=== PATIENT | male | born 1980 | race Caucasian/White ===

== ENCOUNTER 2022-10-05 19:02 | Emergency (ER) | payer SELFPAY ==
[2022-10-05 22:07] LABS: Absolute Lymphocytes (CBC) 1.7 K/uL (0.7-4.9); Hematocrit 51.2 % (39.6-49.0); Lymphocytes % 25.1 % (15.3-44.8); MCV 90.5 fL (80-100); MPV 7.9 fL (7.6-11.3); RBC Red Blood Cell Count 5.66 M/uL (4.33-5.43)
--- NOTE | 2022-10-05 22:21 | RAD REPORT ---
EXAM DESCRIPTION: Osman Single View10/05/2022 10:13 pm CLINICAL HISTORY: edema. Lower leg and feet swelling than redness. COMPARISON: No comparisons TECHNIQUE: PA and lateral views of the chest. FINDINGS: The lungs are clear. Mild central interstitial prominence, could reflect mild central avis estion. No pneumothorax or effusion. The cardiomediastinal contours are unremarkable. IMPRESSION: No focal airspace opacity. Suggestion of mild central congestion.
--- NOTE | 2022-10-05 22:22 | RAD REPORT ---
EXAM DESCRIPTION: RAD - Foot Left 3 View - 10/05/2022 10:13 pm CLINICAL HISTORY: Middle toe pain TECHNIQUE: Two views of the left foot COMPARISON: None. FINDINGS: No fracture, dislocation or periosteal reaction. Corticated osseous densities adjacent to the head of the fifth digit proximal phalanx, could reflect sequelae of remote trauma. No air or foreign body in the soft tissues. IMPRESSION: No acute osseous abnormality of the left foot.
[2022-10-05 22:31] LABS: Magnesium 2.4 mg/dL (1.6-2.4); Potassium 4.1 mmol/L (3.5-5.1); Troponin High Sensitivity 5.4 pg/mL (<58.9)
--- NOTE | 2022-10-05 22:35 | RAD REPORT ---
EXAM DESCRIPTION: US - Extrem Venous W Compress Jose - 10/05/2022 10:26 pm CLINICAL HISTORY: Pain COMPARISON: None. TECHNIQUE: Real-time sonographic evaluation of the bilateral lower extremity deep venous systems was performed. FINDINGS: Normal compressibility, flow augmentation, phasic flow and spontaneous flow is identified in both the left and right lower extremity deep venous systems. No intraluminal filling defects seen. Bilateral subcutaneous edema along the lower leg, more pronounced on the right. IMPRESSION: No evidence of deep venous thrombosis in either lower extremity.
--- NOTE | 2022-10-05 22:41 | RAD REPORT ---
EXAM DESCRIPTION: US - Lower Extremity Arterial Bilat - 10/05/2022 10:26 pm CLINICAL HISTORY: Pain COMPARISON: No comparisons TECHNIQUE: Bilateral lower extremity arterial Doppler examination was performed with waveform tracin g and color duplex imaging. FINDINGS: Triphasic waveforms are seen throughout both lower extremity arterial systems to the level of the socorro salis pedis artery on the right and posterior tibial arteries on the left. Monophasic flow seen within the dorsalis pedis artery on the left with preserved systolic upstroke. To the extent evaluated common no significant atherosclerotic plaque burden. IMPRESSION: No evidence of significant peripheral vascular disease on the right. Monophasic waveform pattern seen along the left dorsalis pedis artery, which raises concern for mild proximal stenosis. More proximally, the left lower extremity measures air structures show no signific ant peripheral vascular disease.
--- NOTE | 2022-10-06 00:49 | EDPHYS ---
Physician Documentation [facility] Name: Isaiah Monterroso Age: 41 yrs Sex: Male : 1980 Arrival Date: 10/05/2022 Time: 19:04 Bed 16 Private MD: ED Physician Paresh Marcano HPI: 10/05 21:13 This 41 yrs old Male presents to ER via Ambulatory with complaints of Leg Swelling, cp Wound Check. 21:13 The patient presents with swelling. cp 21:13 The complaints affect the left lower leg and right lower leg. Onset: The cp symptoms/episode began/occurred gradually. Associated signs and symptoms: Pertinent positives: left middle toe pain, Pertinent negatives fever, warmth. Treatment prior to arrival includes: no previous treatment. Severity of symptoms: in the emergency department the symptoms are unchanged, despite home interventions. Historical: - Allergies: 20:03 Sulfa (Sulfonamide Antibiotics); jh5 - PSHx: 20:03 Appendectomy; Cholecystectomy; right middle finger amputation; Tonsillectomy; 5 - Immunization history:: Adult Immunizations up to date. - Social history:: Smoking status: Patient reports the use of cigarette tobacco products, smokes one-half pack cigarettes per day. ROS: 21:15 Constitutional: Negative for body aches, chills, fever, poor PO intake. cp 21:15 Eyes: Negative for injury, pain, redness, and discharge. cp 21:15 Cardiovascular: Positive for edema, Negative for chest pain, palpitations. cp 21:15 Respiratory: Negative for cough, shortness of breath, wheezing. 21:15 Abdomen/GI: Negative for abdominal pain, nausea, vomiting, and diarrhea. 21:15 MS/extremity: Positive for pain, of the left middle toe, Negative for injury or acute deformity. 21:15 All other systems are negative. Exam: 21:20 Constitutional: The patient appears in no acute distress, alert, awake, cp non-diaphoretic, non-toxic, well developed, well nourished, obese. 21:20 Head/Face: Normocephalic, atraumatic. cp 21:20 Eyes: Periorbital structures: appear normal, Conjunctiva: normal, no exudate, no injection, Sclera: no appreciated abnormality, Lids and lashes: appear normal, bilaterally. 21:20 ENT: External ear(s): are unremarkable, Nose: is normal, Mouth: Lips: moist, Oral mucosa: moist, Posterior pharynx: Airway: no evidence of obstruction, patent. 21:20 Chest/axilla: Inspection: normal. 21:20 Cardiovascular: Rate: tachycardic, Rhythm: regular, Pulses: Pulses are 2+ in right dorsalis pedis artery and left dorsalis pedis artery. Edema: pedal edema, that is mild, ankle edema, that is moderate, JVD: is not appreciated. 21:20 Respiratory: the patient does not display signs of respiratory distress, Respirations: normal, no use of accessory muscles, no retractions, labored breathing, is not present, Breath sounds: are clear throughout, no decreased breath sounds, no stridor, no wheezing. 21:20 Abdomen/GI: Inspection: abdomen appears normal, Palpation: abdomen is soft and non-tender, in all quadrants. 21:20 Musculoskeletal/extremity: Extremities: noted in the left foot: middle toe painful to touch, mild swelling and erythema, web space between second and middle toe appears with erythema, macerated. 21:20 Neuro: Orientation: to person, place \T\ time. Mentation: is normal. 21:40 ECG was reviewed by the Attending Physician. cp Vital Signs: 20:00 BP 146 / 97; Pulse 105; Resp 18; Temp 98.6; Pulse Ox 100% ; Weight 86.18 kg; Height 5 5 ft. 11 in. (180.34 cm); Pain 9/10; 10/06 00:39 BP 136 / 96; Pulse 94; Resp 16; Pulse Ox 96% on R/A; jb4 10/05 20:00 Body Mass Index 26.50 (86.18 kg, 180.34 cm) 5 MDM: 10/05 20:57 Patient medically screened. [facility] 10/06 00:49 Data reviewed: vital signs, nurses notes, lab test result(s), EKG, radiologic studies, cp plain films, ultrasound. 00:49 Differential diagnosis: cellulitis, DVT, CHF. Consideration of Admission/Observation cp Escalation of care including admission/observation considered. Counseling: I had a detailed discussion with the patient and/or guardian regarding: the historical points, exam findings, and any diagnostic results supporting the discharge/admit diagnosis, lab results, radiology results, the need for outpatient follow up, a family practitioner, to return to the emergency department if symptoms worsen or persist or if there are any questions or concerns that arise at home. 10/05 21:13 Order name: Basic Metabolic Panel cp 10/05 21:13 Order name: CBC with Diff cp 10/05 21:13 Order name: Magnesium cp 10/05 21:13 Order name: NT PRO-BNP cp 10/05 21:13 Order name: PT-INR cp 10/05 21:13 Order name: Troponin HS cp 10/05 21:13 Order name: XRAY Foot LEFT 3 View cp 10/05 21:13 Order name: US Extremity Venous W Compression Jose cp 10/05 22:12 Order name: CBC with Automated Diff; Complete Time: 22:52 EDMS 10/05 22:52 Interpretation: Normal except: RBC 5.66; HCT 51.2. cp 10/05 22:31 Order name: Basic Metabolic Panel; Complete Time: 22:52 EDMS 10/05 22:52 Interpretation: Normal except: NA 134; GLUC 107; GFR 81. cp 10/05 22:31 Order name: Troponin High Sensitivity; Complete Time: 22:52 EDMS 10/05 22:31 Order name: NT PRO-BNP; Complete Time: 22:52 EDMS 10/05 22:31 Order name: Magnesium; Complete Time: 22:52 EDMS 10/05 22:54 Order name: Protime (+INR); Complete Time: 00:41 EDMS 10/05 21:13 Order name: XRAY Chest (1 view) cp 10/05 21:13 Order name: EKG; Complete Time: 21:14 cp 10/05 21:13 Order name: Cardiac monitoring; Complete Time: 22:01 cp 10/05 21:13 Order name: EKG - Nurse/Tech; Complete Time: 21:35 cp 10/05 21:13 Order name: IV Saline Lock; Complete Time: 22:01 cp 10/05 21:13 Order name: Labs collected and sent; Complete Time: 22:01 cp 10/05 21:13 Order name: O2 Per Protocol; Complete Time: 22:01 cp 10/05 21:13 Order name: O2 Sat Monitoring; Complete Time: 22:01 cp 10/05 21:13 Order name: US LE Arterial Bilateral cp 10/05 22:21 Order name: RAD; Complete Time: 22:52 EDMS 10/05 22:23 Order name: RAD; Complete Time: 22:52 EDMS 10/05 22:36 Order name: US; Complete Time: 22:52 EDMS 10/05 22:42 Order name: US; Complete Time: 22:52 EDMS 10/05 22:57 Order name: CT Aorta for Dissection cp EC/13 21:40 Rate is 88 beats/min. Rhythm is regular. ME interval is normal. QRS interval is cp prolonged at 104 msec. QT interval is normal. T waves are Inverted in lead aVR. Interpreted by me. Reviewed by me. Administered Medications: 10/06 01:04 Drug: Hydrocodone-Acetaminophen (7.5 mg-325 mg) 1 tabs Route: PO; jb4 01:04 Drug: Doxycycline 200 mg Route: PO; jb4 Disposition Summary: 10/06/22 00:49 Discharge Ordered Location: Home cp Problem: new cp Symptoms: have improved cp Condition: Stable cp Diagnosis - Cellulitis of left toe - middle cp - Edema, unspecified cp Followup: cp - With: Private Physician - When: 2 - 3 days - Reason: Recheck today's complaints Discharge Instructions: - Discharge Summary Sheet cp - Edema cp - Steps to Quit Smoking cp - How to Use Compression Stockings cp - Aspirin and Your Heart cp Forms: - Medication Reconciliation Form cp - Thank You Letter cp - Antibiotic Education cp - Prescription Opioid Use cp Prescriptions: - Lasix 20 mg Oral Tablet - take 1 tablet by ORAL route once daily for 5 days; 5 tablet; Refills: 0, cp Product Selection Permitted - Doxycycline Hyclate 100 mg Oral Tablet - take 1 tablet by ORAL route once daily for 10 days; 20 tablet; Refills: 0, cp Product Selection Permitted Signatures: Dispatcher [employer] EDOH Paresh Marcano MD MD cha Page, Corey, PA PA cp Bryson, James, RN RN jb4 Tiara Win RN RN jh5 Corrections: (The following items were deleted from the chart) 10/05 20:04 20:03 Allergies: Latex, Natural Rubber; [place] [id number]
--- NOTE | 2022-10-06 00:49 | ER ---
Nurse's Notes [facility] Name: Isaiah Monterroso Age: 41 yrs Sex: Male : 1980 Arrival Date: 10/05/2022 Time: 19:04 Bed 16 Private MD: Diagnosis: Cellulitis of left toe-middle;Edema, unspecified Presentation: 10/05 20:00 Chief complaint: Patient states: my shins and ankles and feet are way swollen and red jh5 x10 days; i dont like doctors, i dont see no doctor, i dont take no medicine. Coronavirus screen: Vaccine status: Patient reports being unvaccinated. Client denies travel out of the [place] in the last 14 days. Ebola Screen: Patient negative for fever greater than or equal to 101.5 degrees Fahrenheit, and additional compatible Ebola Virus Disease symptoms Patient denies exposure to infectious person. Patient denies travel to an Ebola-affected area in the 21 days before illness onset. Initial Sepsis Screen: Does the patient meet any 2 criteria? No. Patient's initial sepsis screen is negative. Does the patient have a suspected source of infection? No. Patient's initial sepsis screen is negative. Risk Assessment: Do you want to hurt yourself or someone else? Patient reports no desire to harm self or others. 20:00 Method Of Arrival: Ambulatory [facility] 20:00 Acuity: ANDREAS 2 5 Triage Assessment: 20:03 General: Appears uncomfortable, well groomed, well developed, Behavior is calm, jh5 cooperative, appropriate for age. Pain: Complains of pain in right foot and left foot. Historical: - Allergies: 20:03 Sulfa (Sulfonamide Antibiotics); jh5 - PSHx: 20:03 Appendectomy; Cholecystectomy; right middle finger amputation; Tonsillectomy; [facility] - Immunization history:: Adult Immunizations up to date. - Social history:: Smoking status: Patient reports the use of cigarette tobacco products, smokes one-half pack cigarettes per day. Screenin:15 [facility] ED Fall Risk Assessment (Adult) History of falling in the last 3 months, jb4 including since admission No falls in past 3 months (0 pts) Confusion or Disorientation No (0 pts) Score/Fall Risk Level 0 - 2 = Low Risk Oriented to surroundings, Maintained a safe environment. Abuse screen: Denies threats or abuse. Nutritional screening: No deficits noted. Tuberculosis screening: No symptoms or risk factors identified. Assessment: 21:15 General: Appears in no apparent distress. uncomfortable, Behavior is calm, cooperative, jb4 appropriate for age. Pain: Complains of pain in left foot Pain does not radiate. Pain currently is 8 out of 10 on a pain scale. Neuro: Level of Consciousness is awake, alert, obeys commands, Oriented to person, place, time, situation. Cardiovascular: Patient's skin is warm and dry. Respiratory: Airway is patent Respiratory effort is even, unlabored, Respiratory pattern is regular, symmetrical. GI: No signs and/or symptoms were reported involving the gastrointestinal system. : No signs and/or symptoms were reported regarding the genitourinary system. EENT: No signs and/or symptoms were reported regarding the EENT system. Derm: Skin is intact, Skin is pink, warm \T\ dry. Musculoskeletal: Circulation, motion, and sensation intact. Range of motion: intact in all extremities, Swelling present in right leg and left leg. 22:30 Reassessment: Patient appears in no apparent distress at this time. Patient and/or jb4 family updated on plan of care and expected duration. Pain level reassessed. Patient is alert, oriented x 3, equal unlabored respirations, skin warm/dry/pink. 23:30 Reassessment: Patient appears in no apparent distress at this time. Patient and/or jb4 family updated on plan of care and expected duration. Pain level reassessed. Patient is alert, oriented x 3, equal unlabored respirations, skin warm/dry/pink. 10/06 00:39 Reassessment: Patient appears in no apparent distress at this time. Patient and/or jb4 family updated on plan of care and expected duration. Pain level reassessed. Patient is alert, oriented x 3, equal unlabored respirations, skin warm/dry/pink. Provider at the bedside. Vital Signs: 10/05 20:00 BP 146 / 97; Pulse 105; Resp 18; Temp 98.6; Pulse Ox 100% ; Weight 86.18 kg; Height 5 jh5 ft. 11 in. (180.34 cm); Pain 9/10; 10/06 00:39 BP 136 / 96; Pulse 94; Resp 16; Pulse Ox 96% on R/A; jb4 02/13 20:00 Body Mass Index 26.50 (86.18 kg, 180.34 cm) [facility] ED Course: 10/05 19:04 Patient arrived in ED. as 20:03 Triage completed. 5 20:03 Arm band placed on left wrist. 5 20:19 Paresh Aldrich PA is PHCP. cp 20:19 Paresh Marcano MD is Attending Physician. cp 21:15 Patient has correct armband on for positive identification. Bed in low position. Call jb light in reach. Side rails up X 1. Client placed on continuous cardiac and pulse oximetry monitoring. NIBP monitoring applied. 22:01 Troponin HS Sent. jb4 22:01 PT-INR Sent. jb4 22:01 Magnesium Sent. jb4 22: NT PRO-BNP Sent. jb4 22: CBC with Diff Sent. jb4 22:01 Basic Metabolic Panel Sent. jb4 10/06 00:35 Ildefonso Ge, RN is Primary Nurse. 4 01:16 No provider procedures requiring assistance completed. IV discontinued, intact, jb4 bleeding controlled, No redness/swelling at site. Pressure dressing applied. Administered Medications: 01:04 Drug: Hydrocodone-Acetaminophen (7.5 mg-325 mg) 1 tabs Route: PO; jb4 01:04 Drug: Doxycycline 200 mg Route: PO; jb4 Outcome: 00:49 Discharge ordered by MD. cp 01:16 Discharged to home ambulatory, with family. jb4 01:16 Condition: stable 01:16 Discharge instructions given to patient, Instructed on discharge instructions, follow up and referral plans. medication usage, Demonstrated understanding of instructions, follow-up care, medications, Prescriptions given X 2. 01:17 Patient left the ED. 4 Signatures: Wendy Aparicio as Paresh Aldrich PA PA cp Ildefonso Ge, RN RN [facility] Tiara Win, ROSEMARIE RN [facility] Corrections: (The following items were deleted from the chart) 10/05 20:04 20:03 Allergies: Latex, Natural Rubber; [place] [id number]
[2022-10-06] MEDS ORDERED: HYDROCODONE/APAP 7.5/325 MG TAB ONE (01:02)
[2022-10-06] MEDS ORDERED: DOXYCYCLINE 100 MG CAP PO ONE (01:02)
[2022-10-06 01:22] VITALS: TEMP 98.6
[2022-10-06 01:23] VITALS: BP 136/96; O2SAT 96
--- NOTE | 2022-10-06 17:10 | EKG ---
Test Date: 2022-10-05 Test Time: 21:33:07 Welfare Analyst: RV MEASUREMENT RESULTS: Intervals: Rate: 88 KS: 164 QRSD: 104 QT: 346 QTc: 418 [place]: P: 51 KS: 164 QRS: 65 T: 49 INTERPRETIVE STATEMENTS: Normal sinus rhythm Normal ECG No previous ECG available for comparison Electronically Signed On 10-06-22 17:08:37 DESTINATION IMAGINATION COORDINATOR by Ras Arreguin
--- NOTE | 2022-10-06 20:10 | RAD REPORT ---
EXAM DESCRIPTION: CT - Angio Aorta For Dissection - 10/06/2022 6:45 am CLINICAL HISTORY: 41 years, Male, edema COMPARISON: None. TECHNIQUE: Multiple transaxial tomograms of the thoracic and abdominal aorta from the lung apex to t he ischial tuberosities performed utilizing 3 mm slice thickness at 3 mm interval obstruction after t he administration of large bowel IV contrast for complete opacification of the thoracic, abdominal ao rta and iliac arteries. 2-D and 3-D multiplanar reformats, volume rendering technique and maximum intensity projection images were generated and reviewed. This exam was performed according to our departmental dose-optimization protocol, which includes auto mated exposure control, adjustment of the mA and/or kV according to patient size and/or use of iterat [place] reconstruction technique. FINDINGS: Thoracic aorta: The thoracic aorta demonstrate to be within normal limits. There is no evidence for significant aneur ysm/or dissection. The heart is normal transient pattern of the great vessels. Incidentally is noted presence of origin of the left vertebral artery from the aortic arch. Abdominal aorta: The abdominal aorta demonstrate to be within normal limits. There is no evidence for significant diss ection and/or aneurysm. There is normal appearance of the celiac trunk, superior mesenteric and infer ior mesenteric artery with no evidence for significant stenosis/or occlusion. There are single bilateral renal arteries. Iliac arteries demonstrate to be normal with no evidence f or stenosis/or occlusion. Chest: The lung parenchyma demonstrate tiny centrilobular emphysematous changes at the lung apexes. No signi ficant pulmonary nodules and/or masses are identified. The trachea mainstem bronchus demonstrate to be unremarkable. There is no pleural/or pericardial effu sions. The heart is normal in size. The central pulmonary arteries demonstrate no evidence for significant f illing defects that would suggest pulmonary embolus. There is no significant mediastinal and/or hilar lymphadenopathy. The axillary regions demonstrate to be clear. The bone windows demonstrate no signi ficant skeletal lesions. Abdomen and pelvis: The liver, spleen, adrenal glands, pancreas demonstrate to be unremarkable. Surgical clips within the gallbladder fossa correspond to previous cholecystectomy The kidneys demonstrate normal uptake of contrast media with no evidence for nephrolithiasis/or hydro nephrosis. Grossly the unopacified stomach, small bowel and large bowel demonstrate to be within normal limits. There is no evidence for bowel dilatation/or free air. The urinary bladder demonstrate to be within normal limits. The prostate gland is unremarkable. There is no retroperitoneal lymphadenopathy. There is no evidence for ascites. The bone windows demonstrat e no significant skeletal lesions. IMPRESSION: No evidence for significant aneurysm and/or dissection involving the thoracic or abdomin al aorta. No evidence for significant pulmonary embolus. Status post cholecystectomy. Minimal centrilobular emphysematous changes at the lung apexes. Electronically signed by: Solo Jerome MD 10/06/2022 12:15 AM KILN STOKER Due to temporary technical issues with the PACS/Fluency reporting system, reports are being signed by the in house radiologists without review as a courtesy to insure prompt reporting. The interpreting radiologist is fully responsible for the content of the report.
== END 2022-10-06 01:17 | disposition home or self-care (01) ==
LOC: ER 19:02
DX: L03.032 Cellulitis of left toe (principal); R60.9 Edema, unspecified; F17.210 Nicotine dependence, cigarettes, uncomplicated; Z88.2 Allergy status to sulfonamides
CPT/HCPCS: 36415; 71045; 71275; 74175; 80048; 83735; 83880; 84484; 85025; 85610; 93005; 93925; 93970; Q9967